=== PATIENT | male | born 1950 | race American Indian/Alaskan Native ===

== ENCOUNTER 2020-05-31 09:44 | Day surgery (SDC) | payer MEDICARE ==
[2020-05-29 11:21] LABS: Hematocrit 36.4 % (35.5-45.6); Hemoglobin 12.4 gm/dl (11.8-15.2); Mean Corpuscular HGB Conc 34 % (32-34); Mean Corpuscular Volume 92 fl (84-94); Platelet Count 192 K/mm3 (140-440); Red Blood Count 3.94 M/mm3 (3.65-5.03); Red Cell Distribution Width 14.7 % (13.2-15.2)
[2020-05-29 11:35] LABS: Blood Urea Nitrogen 11 mg/dL (9-20); Calcium 10.4 mg/dL (8.4-10.2); Hemolysis Index 0
[2020-05-29 11:43] LABS: BUN/Creatinine Ratio 16
[~2020-05-31 09:44] MED LIST: LACTATED RINGERS 1,000 ML IV SCH
[2020-05-31] MEDS ORDERED: MIDAZOLAM 2 MG/2 ML INJ ONE (11:21)
[2020-05-31] MEDS ORDERED: MIDAZOLAM 2 MG/2 ML INJ IV NR (11:21)
--- NOTE | 2020-05-31 11:24 | Anesthesia Consultation ---
Anesthesia Consult and Med Hx Date of service: 05/31/20 - Airway Anesthetic Teeth Evaluation: Partials ROM Head & Neck: Adequate Mental/Hyoid Distance: Adequate Mallampati Class: Class II Intubation Access Assessment: Probably Good - Pre-Operative Health Status ASA Pre-Surgery Classification: ASA2 Proposed Anesthetic Plan: General - Pulmonary Hx Asthma: Yes (used maintenance inhaler this morning. No rescue inhaler in years) Hx Respiratory Symptoms: No - Cardiovascular System Hx Hypertension: Yes Hx Heart Attack/AMI: No - Central Nervous System CVA: No - Gastrointestinal Hx Gastroesophageal Reflux Disease: Yes (took PPI this morning) - Endocrine Hx Renal Disease: No Hx Liver Disease: No Hx Insulin Dependent Diabetes: Yes Hx Thyroid Disease: No
[2020-05-31] MEDS ORDERED: HYDROcodone/ACETAMINOPHEN 5-325 MG TAB PO PRN (11:25)
[2020-05-31] MEDS ORDERED: ONDANSETRON 4 MG/2 ML INJ IV PRN (11:25)
--- NOTE | 2020-05-31 11:25 | Anesthesia Day of Surgery ---
Anesthesia Day of Surgery - Day of Surgery Patient Examined: Yes Patient H&P Reviewed: Yes Patient is NPO: Yes
[2020-05-31] MEDS ORDERED: fentaNYL 100 MCG/2 ML INJ IV PRN (11:30)
[2020-05-31] MEDS ORDERED: ceFAZolin/STERILE WATER 2 GM/20 ML SYRINGE IV NR (11:36)
[2020-05-31] MEDS ORDERED: fentaNYL 100 MCG/2 ML INJ ONE (12:53)
[2020-05-31] MEDS ORDERED: propofoL 200 MG/20 ML VIAL IV ONE (12:53)
[2020-05-31] MEDS ORDERED: LIDOCAINE MPF (2%) 20 MG/1 ML VIAL 5 ML ONE (12:53)
[2020-05-31] MEDS ORDERED: ONDANSETRON 4 MG/2 ML INJ ONE (12:53)
[2020-05-31] MEDS ORDERED: ePHEDrine SULFATE 50 MG/1 ML INJ ONE (13:19)
[2020-05-31] MEDS ORDERED: FUROSEMIDE 40 MG/4 ML INJ ONE (13:42)
--- NOTE | 2020-05-31 13:55 | Post Operative Note ---
Date of procedure: 05/31/20 Pre-op diagnosis: bph Post-op diagnosis: same Findings: bph Procedure: cysto rezum Anesthesia: [facility] Surgeon: OLIVIA SANCHEZ Estimated blood loss: none Pathology: none Condition: stable Disposition: PACU
--- NOTE | 2020-05-31 13:57 | Discharge Summary ---
Short Stay Discharge Plan Activity: other (no straing ) Weight Bearing Status: Full Weight Bearing Diet: low fat, low cholesterol, low salt Special Instructions: other (inc fluids ) Follow up with: DOROTEO KELLER MD [Primary Care Provider] - 7 Days OLIVIA SANCHEZ MD [Staff Physician] - 7 Days
--- NOTE | 2020-05-31 14:21 | Operative Report ---
PREOPERATIVE DIAGNOSIS: Bladder outlet obstruction. POSTOPERATIVE DIAGNOSIS: Bladder outlet obstruction. PROCEDURE: Cystoscopy, Rezum. SURGEON: Dr. Silva. ANESTHESIA: General. FINDINGS: This is a gentleman with bladder outlet obstruction. All risks and implications discussed. He had a small area of redness in the posterior bladder, which may have been previous infection. He now presents for cystoscopy resume. DESCRIPTION OF PROCEDURE: The patient was brought to the operating room and placed on the operating table. Following induction of anesthesia, placed in lithotomy position, prepped and draped in usual sterile fashion. A 20-L[place] cystourethroscope was placed. All the redness was gone. There was no need to do a biopsy. No papillary lesions. There was BPH. Mostly bilobar hypertrophy, little larger lobe on the left than the right. Using the Rezum after it was primed twice, two sticks on the left, one on the right. The patient tolerated the procedure well. An 18 coude was easily placed, irrigated freely. The patient was brought to recovery in stable condition. JOB# [id number] MARITZA/ALFONSO
[2020-05-31 15:23] VITALS: BP 142/83
--- NOTE | 2020-05-31 16:44 | Post Anesthesia Evaluation ---
- Post Anesthesia Evaluation Patient Participated: Yes Airway Patent: Yes Stable Respiratory Function: Yes Nausea/Vomiting: No Temp > 96.8F: Yes Pain Manageable: Yes Adequeate Hydration: Yes Anesthesia Complications: No
== END 2020-05-31 16:10 | disposition home or self-care (01) ==
LOC: OR 09:44
PROVIDERS: ATTEND Urology
DX: N32.89 Other specified disorders of bladder (principal); N32.0 Bladder-neck obstruction; Z20.822 Contact with and (suspected) exposure to COVID-19; N40.0 Benign prostatic hyperplasia without lower urinary tract symptoms; E78.00 Pure hypercholesterolemia, unspecified; I10 Essential (primary) hypertension; J45.909 Unspecified asthma, uncomplicated; K21.9 Gastro-esophageal reflux disease without esophagitis; E11.9 Type 2 diabetes mellitus without complications; Z72.89 Other problems related to lifestyle; Z79.899 Other long term (current) drug therapy; Z79.4 Long term (current) use of insulin; Z98.890 Other specified postprocedural states
CPT/HCPCS: 36415; 53854; 80048; 82962; 85027; J0690; J1940; J2250; J2405; J2704; J3010; J7120; U0003